=== PATIENT | female | born 1980 | race Caucasian/White ===

== ENCOUNTER 2016-12-11 22:57 | Emergency (ER) | payer OTHER ==
[~2016-12-11] VITALS: Ht 162.6 cm; Wt 89.0 kg
[~2016-12-11 22:57] MED LIST: AZITHROMYCIN250 MG PO; FLEXERIL10 MG PO; INDOCIN25 MG PO; LIDODERM 5% P1 PATCH TD; LORTAB 5-325 M1 EACH PO; MACROBID100 MG PO; MEDROL DOSEPAK4 MG PO; MUCINEX D ER T1 EACH PO; MULTIVITAMIN1 EAC2 PO; NAPROSYN-EC500 MG PO; NAPROSYN500 MG PO; NOHOMEMEDS; NORCO 5/3251 TABLET PO; PREDNISONE10 MG PO; PROAIR RESPICL90 MCG IH; PROTONIX40 MG PO; ULTRACET1 TABLET PO; VALIUM5 MG PO; ZANTAC300 MG PO
[2016-12-11 23:36] LABS: BASOPHIL COUNT 0.1 K/uL (0-0.1); EOSINOPHIL (%) 3.7 % (0-5); EOSINOPHIL COUNT 0.4 K/uL (0-0.3); HEMATOCRIT 38.1 % (36.0-46.0); IMMATURE GRANULOCYTE (%) 0.2 % (0.0-0.7); IMMATURE GRANULOCYTE COUNT 0.2 K/uL; LYMPHOCYTE COUNT 3.4 K/uL (1.0-2.8); MCH 29.2 PG (29.0-34.0); MCHC 32.8 G/DL (30.0-36.0); MONOCYTE (%) 6.8 % (3-12); MONOCYTE COUNT 0.7 K/uL (0-0.8); NEUTROPHIL (%) 56.6 % (45-76); PLATELET COUNT 371 K/uL (156-360); RBC DIS.WIDTH-CV 13.1 % (11.8-14.6); RBC DIS.WIDTH-SD 41.8 % (39-53); RED BLOOD COUNT 4.28 M/uL (3.80-5.20); WHITE BLOOD COUNT 10.6 K/uL (4.1-10.2)
[2016-12-11 23:37] LABS: ADD MIUA? YES; BILIRUBIN NEGATIVE; BLOOD NEGATIVE; COLOR YELLOW ((YELLOW)); GLUCOSE (STRIP) NEGATIVE; KETONES NEGATIVE; LEUKOCYTES SMALL; NITRITE POSITIVE; PROTEIN (STRIP) TRACE; SPECIFIC GRAVITY 1.027 (1.000-1.030)
[2016-12-11 23:46] LABS: CHLORIDE 110 mEq/L (99-109); POTASSIUM 3.7 mEq/L (3.7-5.4); SODIUM 140 mEq/L (136-147)
[2016-12-11 23:49] LABS: GLUCOSE 116 mg/dL (70-99)
[2016-12-11 23:50] LABS: ANION GAP 9 MEQ/L (2-14); TOTAL BILIRUBIN 0.1 mg/dL (0.0-1.0)
[2016-12-11 23:52] LABS: ALKALINE PHOSPHATASE 79 IU/L (3-129); GFR ESTIMATE (CALCULATED) > 59 mL/min/
[2016-12-11 23:53] LABS: UREA NITROGEN (BUN) 8 mg/dL (9-23)
[2016-12-11 23:56] LABS: LIPASE 41 U/L (1.0-51.0)
[2016-12-12 00:01] LABS: QUANTITATIVE HCG < 4.0 MIU/ML
[2016-12-12 00:03] LABS: RED BLOOD CELLS 0-5 /HPF (0-5)
[2016-12-12 00:08] LABS: BACTERIA 2+; CASTS PRESENT /LPF; CRYSTALS NONE SEEN; EPITHELIAL CELLS 1+; FINE GRANULAR CASTS 0-5 /LPF; MUCUS RARE; UCUL ADDED? YES
[2016-12-12] MEDS ORDERED: ASCORBIC ACID250 MG PO (00:56)
[2016-12-12] MEDS ORDERED: PERCOCET 5/31 TABLET PO (02:34)
[2016-12-12] MEDS ORDERED: ZOFRAN ODT4 MG PO (02:34)
[2016-12-12] MEDS ORDERED: CIPRO500 MG PO (02:34)
[2016-12-12 02:43] VITALS: BP 129/81
== END 2016-12-12 02:44 | disposition home or self-care (01) ==
LOC: RME 22:57 → EME 22:57 → RME 12-12 02:44
PROVIDERS: Emergency Medicine
DX: R10.11 Right upper quadrant pain (principal); R10.13 Epigastric pain; N39.0 Urinary tract infection, site not specified; M54.9 Dorsalgia, unspecified; R11.2 Nausea with vomiting, unspecified; M25.519 Pain in unspecified shoulder; F17.200 Nicotine dependence, unspecified, uncomplicated
CPT/HCPCS: 80053; 81003; 83690; 84702; 85025; 87077; 87086; 87186; 99281; 99283

== ENCOUNTER 2017-12-11 05:56 | Emergency (ER) | payer OTHER ==
[~2017-12-11] VITALS: Ht 162.6 cm; Wt 86.7 kg
[~2017-12-11 05:56] MED LIST changes: +ASCORBIC ACID250 MG PO; +CIPRO500 MG PO; +PERCOCET 5/31 TABLET PO; +ZOFRAN ODT4 MG PO
[2017-12-11 07:15] LABS: APPEARANCE SL.HAZY ((CLEAR)); BILIRUBIN NEGATIVE; BLOOD SMALL; COLOR YELLOW ((YELLOW)); GLUCOSE (STRIP) NEGATIVE; KETONES NEGATIVE; LEUKOCYTES NEGATIVE; NITRITE POSITIVE; PROTEIN (STRIP) NEGATIVE; SPECIFIC GRAVITY 1.026 (1.000-1.030); UROBILINOGEN 0.2 MG/DL (0.2-1.0)
[2017-12-11 07:29] LABS: BACTERIA 2+ /HPF; EPITHELIAL CELLS RARE /HPF; MUCUS TRACE /LPF; RED BLOOD CELLS 0-5 /HPF (0-5); UCUL ADDED? YES; WHITE BLOOD CELLS 0-5 /HPF (0-5)
[2017-12-11 08:58] LABS: HEMATOCRIT 40.5 % (36.0-46.0); HEMOGLOBIN 13.3 G/DL (11.9-15.5); MCH 29.2 PG (29.0-34.0); MCHC 32.8 G/DL (30.0-36.0); PLATELET COUNT 433 K/uL (156-360); RBC DIS.WIDTH-CV 12.6 % (11.8-14.6); RBC DIS.WIDTH-SD 41.2 % (39-53); RED BLOOD COUNT 4.55 M/uL (3.80-5.20); WHITE BLOOD COUNT 9.9 K/uL (4.1-10.2)
[2017-12-11 09:09] LABS: ALBUMIN 4.3 g/dL (3.2-4.8); CHLORIDE 108 mEq/L (99-109); POTASSIUM 4.5 mEq/L (3.7-5.4); SODIUM 138 mEq/L (136-147)
[2017-12-11 09:11] LABS: GLUCOSE 107 mg/dL (70-99); TOTAL PROTEIN 7.1 g/dL (6.4-8.3)
[2017-12-11 09:13] LABS: TOTAL BILIRUBIN 0.2 mg/dL (0.0-1.0)
[2017-12-11 09:15] LABS: ALKALINE PHOSPHATASE 76 IU/L (3-129); CREATININE 0.7 mg/dL (0.6-1.3); GFR ESTIMATE (CALCULATED) > 59 mL/min/
[2017-12-11 09:16] LABS: AST (GOT) 14 IU/L (2-34); UREA NITROGEN (BUN) 9 mg/dL (9-23)
[2017-12-11 09:18] LABS: ALT (GPT) 24 IU/L (3-49); LIPASE 29 U/L (1.0-51.0)
[2017-12-11 09:28] LABS: QUANTITATIVE HCG < 4.0 MIU/ML
[2017-12-11] MEDS ORDERED: ZOFRAN ODT4 MG PO (10:33)
[2017-12-11] MEDS ORDERED: BACTRIM,SEPT1 TABLET PO (10:33)
[2017-12-11 10:52] VITALS: BP 112/72
== END 2017-12-11 10:52 | disposition home or self-care (01) ==
LOC: EME 05:56
DX: A08.4 Viral intestinal infection, unspecified (principal); N39.0 Urinary tract infection, site not specified; Z02.79 Encounter for issue of other medical certificate; F17.200 Nicotine dependence, unspecified, uncomplicated; F32.9 Major depressive disorder, single episode, unspecified; F41.9 Anxiety disorder, unspecified; Z88.5 Allergy status to narcotic agent
CPT/HCPCS: 80053; 81003; 83690; 84702; 85027; 87077; 87086; 87186; 99281; 99284